=== PATIENT | male | born 1950 | race Caucasian/White ===

== ENCOUNTER 2017-05-21 01:58 | Emergency (ER) | payer MEDICARE, OTHER ==
[~2017-05-21] VITALS: Ht 165.1 cm; Wt 64.0 kg
[~2017-05-21 01:58] MED LIST: BENA20TA3 PO; HYDR25TA PO; METF850T2 PO; PRAV40TA3 PO
[2017-05-21] MEDS ORDERED: NEOMYCIN/POLYMYXIN B/HYDROCORT 10 ML OTIC SUSPENSION AS ONE (03:45)
[2017-05-21 03:48] VITALS: BP 138/78
[2017-05-21 09:13] LABS: GLUCOSE,POINT OF CARE 139 MG/DL (70-110)
== END 2017-05-21 03:49 | disposition home or self-care (01) ==
LOC: EMS 02:01
DX: T16.2XXA Foreign body in left ear, initial encounter (principal); E11.9 Type 2 diabetes mellitus without complications; I10 Essential (primary) hypertension; Y92.89 Other specified places as the place of occurrence of the external cause
CPT/HCPCS: 69200; 82962; 99284